=== PATIENT | female | born 2000 | race Caucasian/White ===

== ENCOUNTER 2020-10-16 09:32 | Emergency (ER) | payer MEDICAID, SELFPAY ==
[2020-10-16 09:33] VITALS: BP 117/92; PULSE 100; RESP 16; TEMP 36.3; O2SAT 100; BMI 18.7
--- NOTE | 2020-10-16 09:39 | ED.VIS.GEN ---
History of Present Illness Chief Complaint: Vag Bld, Preg Informant: Patient Narrative: 20-year-old female G1, P0 @ 5 weeks presents with concern for vaginal spotting. States it began this morning. Mild cramping. States that she had a positive test 2 days ago. Last menstrual period was 1 month ago. Past Medical History - Allergies and Home Meds Allergies/Adverse Reactions: Allergies Penicillins Allergy (Verified 10/16/20 09:35) Hives Prior records reviewed: Yes Past Medical History: - - Hypothyroidism Surgical History: no surgical history Lives: Spouse/ Significant Other Smoking Status: Never smoker Alcohol: None Drugs: None Review of Systems General: Denies: Chills, Fever, Sweats Eyes: Denies: Visual changes - bilaterally, Diplopia ENT: Denies: Rhinorrhea, Sore throat Cardiovascular: Denies: Chest pain, Palpitations Respiratory: Denies: Dyspnea, Cough, Dyspnea on exertion Gastrointestinal: Denies: Abdominal pain, Nausea, Vomiting, Diarrhea, Melena, Hematochezia Genitourinary: Reports: - - vaginal bleeding. Denies: Dysuria, Hematuria, Frequency Musculoskeletal: Denies: Back pain, Extremity Pain Skin: Denies: Rash, Wounds Neurological: Denies: Headache, Weakness, Numbness Physical Exam Vital Signs/Narrative: Vital Signs Temp Pulse Resp BP Pulse Ox 10/16/20 09:33 97.4 F L 100 16 117/92 H 100 Inital Vital Signs reviewed: Yes General: Well nourished, Well developed, No Acute Distress Head: Normocephalic, Atraumatic Eyes: Perrl, EOMI ENT: Moist mucous membranes, No rhinorrhea Neck: Supple, Nontender Cardiovascular: Regular rate, Regular rhythm, No murmurs Respiratory: No distress, CTA bilaterally, Chest nontender Abdomen: Soft, Nontender, Nondistended, Normal bowel sounds Back: Nontender, Normal Inspection Extremities: Nontender, No edema Skin: Normal color, No rash Neurological: Alert, Oriented x3, Cranial nerves II-XII grossly intact, Normal Strength, Normal Sensation Psychological: Normal affect, Normal Mood Diagnostic/Tx/Re-eval Laboratory Data 10/16/20 10/16/20 09:45 09:54 HCG, Quant 143 H Serum , Qual Cancelled Urine Color Yellow Urine Clarity Sl. Cloudy Urine pH 7.0 Ur Specific Roxana 1.010 Urine Protein Negative Urine Glucose (UA) Normal Urine Ketones Negative Urine Occult Blood 250 H Urine Nitrite Negative Urine Bilirubin Negative Urine Urobilinogen Normal Ur Leukocyte Esterase Negative Urine RBC 5-10 SEEN Urine WBC 0 SEEN Ur Squamous Epith Cells 0-5 SEEN Urine Bacteria RARE Urine Mucus 0 SEEN - Medical Decision Making Patient appears well and nontoxic. Benign abdominal exam. Patient has a very minimally elevated hCG. After discussion patient will defer pelvic exam at this time. Was advised that she needs to have her quantitative hCG rechecked within 48 to 72 hours. Will be given SUPPLY CHAIN MANAGER follow-up and she will call to make this appointment today. Asked to return for any worsening abdominal pain or vaginal bleeding. Patient agreeable and discharged home in stable condition. Impression: 1. Vaginal bleeding 2. 1st trimester ED Disposition - Plan for ED Patient: Disposition: Home or Assisted Living Instructions: ED Possible Miscarriage ... Referrals: Care Physician,No Primary [Primary Care Provider] - Yi Keane DO [STAFF PHYSICIAN] - Additional Instructions: Please have HCG re-drawn in 48-72 hours. Call today for appointment with OBGYN. Return for any worsened bleeding or pain.
[2020-10-16 09:55] LABS: Mucous, Urine 0 SEEN /hpf (<or=2+); White Blood Cells 0 SEEN /hpf (0-5)
[2020-10-16 09:57] LABS: Color, Urine Yellow (Yellow); Glucose, Dipstick Normal (Normal); Ketone-Dipstick Negative (Negative); Leukocyte Esterase-Dipstick Negative /ul (Negative); Nitrite-Dipstick Negative (Negative); Occult Blood-Urine 250 /ul (Negative); Protein-Dipstick Negative (Negative); Urine Bilirubin Dipstick Negative (Negative); Urine Clarity Sl. Cloudy (Clear); Urine Urobilinogen Normal (Normal)
[2020-10-16 10:09] LABS: Bacteria RARE /hpf (None Seen); Red Blood Cells-Urine 5-10 SEEN /hpf (0-5); Squamous Epithelial Cells - UA 0-5 SEEN /hpf (5-10)
[2020-10-16 10:32] LABS: hCG Titer Quant., Serum 143 mIU/mL (1-3)
== END 2020-10-16 11:23 | disposition home or self-care (01) ==
PROVIDERS: Emergency Provider Emergency Medicine
DX: O20.9 Hemorrhage in early pregnancy, unspecified (principal); O99.281 Endocrine, nutritional and metabolic diseases complicating pregnancy, first trimester; E03.9 Hypothyroidism, unspecified; Z3A.01 Less than 8 weeks gestation of pregnancy
CPT/HCPCS: 36415; 81001; 84702; 99282

== ENCOUNTER → 2020-10-20 | Outpatient (CLI) | payer MEDICAID, SELFPAY ==
[2020-10-16 09:33] VITALS: BMI 18.7
[2020-10-20 13:17] LABS: hCG Titer Quant., Serum 14 mIU/mL (1-3)
== END | disposition home or self-care (01) ==
LOC: LABSPEC 11:29
PROVIDERS: Visit Provider Obstetrics & Gynecology
DX: O20.0 Threatened abortion (principal); Z3A.00 Weeks of gestation of pregnancy not specified
CPT/HCPCS: 36415; 84702; 86900; 86901

== ENCOUNTER → 2020-12-20 | Outpatient (CLI) | payer MEDICAID, SELFPAY ==
[2020-12-20 16:00] LABS: hCG Titer Quant., Serum 2454 mIU/mL (1-3)
== END | disposition home or self-care (01) ==
LOC: WOBLAB 14:17
PROVIDERS: Visit Provider Obstetrics & Gynecology
DX: N91.2 Amenorrhea, unspecified (principal)
CPT/HCPCS: 36415; 84702

== ENCOUNTER → 2021-01-09 | Outpatient (CLI) | payer MEDICAID, SELFPAY ==
[2021-01-09 11:21] LABS: Absolute Lymphocyte Count 0.98 X10^3/uL (0.83-4.51); Absolute Neutrophil Count 2.8 X10^3/uL (2.0-7.7); Basophil# 0.02 X10^3/uL; Basophil% 0.5 % (0-1); Eosinophil# 0.02 X10^3/uL; Eosinophils% 0.5 % (0-5); Hematocrit 35.7 % (37-47); Hemoglobin 11.4 g/dL (12.0-15.0); Lymphocyte # 0.98 X10^3/ul (4.0); Lymphocyte % 22.7 % (19-41); Mean Corp Hgb Conc 31.9 g/dL (32-36); Mean Corpuscular Hgb 27.3 pg (27.0-32.0); Mean Corpuscular Volume 85.4 fL (81-99); Mean Platelet Vol. 11.1 fl (6.2-12.0); Monocyte# 0.46 X10^3/uL; Monocyte% 10.7 % (0-10); NRBC Flagged by Analyzer 0 % (0-5); Neutrophil # 2.82 X10^3/uL (2.7-7.7); Neutrophil % 65.4 % (47-70); Platelet Count 236 K/mm3 (150-450); RBC Distribution Width CV 13.5 % (11.6-14.6); RBC Distribution Width SD 41.7 fl (35.1-43.9); Red Blood Count 4.18 M/mm3 (4.2-5.4); White Blood Count 4.3 K/mm3 (4.4-11.0)
[2021-01-09 11:48] LABS: T4 Free Direct 0.95 ng/dL (0.76-1.46); Thyroid Stim Hormone (TSH) 2.73 uIU/mL (0.358-3.74)
[2021-01-09 12:20] LABS: HIV - WCH Non-Reactive (Nonreactive); Hepatitis B Surface Antigen Non-Reactive (Nonreactive); Hepatitis C Antibody Non-Reactive (Nonreactive); Rubella IgG Reactive (Nonreactive); Syphilis Antibodies Non-reactive
[2021-01-11 03:06] LABS: Chlamydia By Nucleic Acid AMP Negative (Negative)
[2021-01-11 16:19] LABS: HPV Reflexed? NOT INDICATED
[2021-01-11 16:24] LABS: Gonococcus By Nucleic Acid AMP Negative (Negative)
== END | disposition home or self-care (01) ==
LOC: WOBLAB 10:27
PROVIDERS: Visit Provider Obstetrics & Gynecology
DX: O99.281 Endocrine, nutritional and metabolic diseases complicating pregnancy, first trimester (principal); E03.9 Hypothyroidism, unspecified; Z12.4 Encounter for screening for malignant neoplasm of cervix; Z11.3 Encounter for screening for infections with a predominantly sexual mode of transmission; Z3A.00 Weeks of gestation of pregnancy not specified
CPT/HCPCS: 36415; 84439; 84443; 85025; 86703; 86762; 86780; 86803; 87086; 87088; 87340; 87491; 87591; 88175; G0145

== ENCOUNTER 2021-02-02 12:41 | Observation (INO) | payer MEDICAID, SELFPAY ==
[2021-02-02] VITALS (16 sets, daily range): BP systolic 99–119; BP diastolic 51–76; PULSE 71–121; RESP 15–18; TEMP 36.6–37; O2SAT 92–100; BMI 19.7; BMI 19.9
--- NOTE | 2021-02-02 13:00 | HP.PCM.OB_ITS ---
History and Physical Date of Admission: 02/02/21 Chief complaint: Vaginal bleeding History of present illness: 20-year-old G2, P0 with active miscarriage measuring 5 weeks. Seen in office with large amount of vaginal bleeding. Passed out in office, retained consciousness in office. Squad was called. Patient denies headache, visual c hanges, chest pain, shortness of breath, nausea vomiting. Does have pelvic cramping and vaginal bleeding. Obstetric history: G1: SAB G2: Current SAB Past medical history: Hypothyroid Medications: vitamin, Synthroid Past surgical history: Dental Allergies: Penicillin (childhood) Social history: Denies history of smoking, alcohol, drug use Family history: Denies history DVT or PE Review of systems: Besides the above pertinent positives a full review of systems performed found to be negative Physical exam: Vital signs: (In office) blood pressure 94/68 pulse 68 General: Pale, weak HEENT: Normocephalic atraumatic no cervical lymphadenopathy Cardiac/respiratory: Nonlabored breathing no use of accessory muscles Abdomen: Soft nontender nondistended Pelvic exam: (In office) with cervix dilated 2 to 3 cm large clot at cervical os along with large amount of vaginal bleeding. Uterus nontender Extremities: No peripheral edema normal peripheral pulses Psych: Normal affect normal demeanor nonpressured speech. Neuro: AOA x3 Assessment and plan: 20-year-old G2, P0 with incomplete active bleeding hemorrhage. Found in office to have passed out, did not hit the floor was called by nursing. Patient quickly recovered. AOA x3 but too weak to stand. Vitals were as above. 911 was called, patient was picked up by squad. With active bleeding and incomplete miscarriage will plan for emergency suction D&C. Patient understands the risk of the procedure include but are not limited to visceral or vascular injury, prolonged hospitalization, blood loss need for transfusion, reoperation. Patient awake and oriented understands risks of consent, states understanding, wishes to proceed, all questions were answered. For IV access. We will get stat CBC. Doxycycline 200 mg IV. Discussed with anesthesia team who agrees.
--- NOTE | 2021-02-02 13:13 | ED.VIS.FEGU ---
HPI HPI - Female History of Present Illness Chief Complaint: Vag Bld, Preg Informant: patient Narrative Narrative: Patient is presenting from her [employer]OMOTIVE RE[employer]ISHER office for concern of hemorrhagic shock from an incomplete AB. Patient started having vaginal bleeding last night. She started to lightheaded this morning. She has had multiple episodes of passing out. She was seen in the office and was noted to have a dilated cervix as well as a large amount of vaginal bleeding. She was felt to be too unstable to go directly to the OR so she was sent to the emergency room to be evaluated and then go to the OR. Patient denies any other complaints at this time. Prior similar symptoms: No PFSH PFSH Medical History (Updated 02/02/21 @ 13:[address] Divine Rosenberg, DO) Hypothyroid no medical history Home Medications levothyroxine 25 mcg PO DAILY 02/02/21 [History Last Taken Unknown] Allergy/AdvReac Type Severity Reaction Status Date / Time Penicillins Allergy Hives Verified 02/02/21 13:01 no significant family history no surgical history Social History Smoking Status: Never smoker ROS ROS ED Constitutional Constitutional ED: Reports other Details: Lightheaded, syncope ; Denies chills, fever(s) or malaise Eyes Eyes: Denies blurry vision or loss of vision ENT ENT ED: Denies rhinorrhea or sore throat Cardiovascular Cardiovascular: Denies chest pain or dizziness Respiratory/Chest Respiratory/Chest: Denies cough or dyspnea Gastrointestinal Gastrointestinal: Reports abdominal pain; Denies nausea or vomiting Genitourinary Genitourinary ED: Reports other Details: Vaginal bleeding ; Denies dysuria or hematuria Musculoskeletal Musculoskeletal: Denies arthralgias or myalgias Integumentary Denies rash or wounds Neurologic Neurologic: Denies focal weakness, headache(s) or weakness Psychiatric Psychiatric: Denies anxiety or behavioral changes EXAM Physical Exam Const Vital Signs: 02/02/21 12:52 02/02/21 13:09 Temperature 98.6 F 98.6 F Temperature Source Oral Oral Pulse Rate 107 H 110 H Respiratory Rate 16 17 Blood Pressure 113/72 119/76 Blood Pressure Mean 85 90 Blood Pressure Source Monitor Blood Pressure Position Supine Blood Pressure Location Right Arm Pulse Ox 96 94 Oxygen Delivery Method Room Air Room Air Positive well nourished and well developed General Appearance ED: well developed and pallor HEENT Reports normocephalic atraumatic Nose: no nasal discharge General Ear: hearing grossly impaired External Ear: external ears normal Mouth ED: Yes moist mucous membranes abnormal Mouth: moist mucous membranes abnormal Eyes PERRL and EOMs intact bilaterally Neck full ROM and no meningeal signs Chest Wall inspection of chest normal Resp normal respiratory effort and normal air movement Cardio regular rhythm Rate: tachycardic GI soft to palpation and non-distended Palpation: tender suprapubic; Negative for guarding Extremity normal to inspection and full ROM Neuro oriented x3 and no focal motor deficits Psych mental status grossly normal and thought process normal Skin no rashes or lesions noted and no wounds General Skin Exam: pallor MDM MDM MDM Narrative Medical decision making narrative: Patient evaluated for excessive vaginal bleeding. She is having a spontaneous . She is felt to be too unstable to go directly to the OR so she was sent to the emergency room first. Patient is given IV fluids. While she is tachycardic and lightheaded she has normal blood pressure. She is not in shock. She requires definitive management with D&C in the operating room. Case is discussed with her AUTOMOTIVE REFINISHER, Dr. Keane, who request that we give her 1 unit of packed red blood cells and send her to the OR where he can perform a D&C. Patient is agreeable with this plan of care. Treatment and Re-Evaluation Comments:: 1 L IV fluid bolus, type and cross for 1 unit packed red blood cells, admit to the OR Discharge Plan Dx/Rx/DC Orders Clinical Impression: Acute bleeding, Incomplete Disposition Disposition: [facility] Discharge Date/Time: 02/02/21 13:19
[2021-02-02] MEDS: 0.9% Normal Saline 1,000 ML 1000 ML IV (13:15)
[2021-02-02 13:26] LABS: Absolute Neutrophil Count 12.6 X10^3/uL (2.0-7.7); Basophil# 0.01 X10^3/uL; Basophil% 0.1 % (0-1); Hematocrit 32.1 % (37-47); Hemoglobin 10.9 g/dL (12.0-15.0); Mean Corpuscular Hgb 28.6 pg (27.0-32.0); Mean Corpuscular Volume 84.3 fL (81-99); Mean Platelet Vol. 11.1 fl (6.2-12.0); Monocyte# 0.79 X10^3/uL; Monocyte% 5.6 % (0-10); NRBC Flagged by Analyzer 0 % (0-5); Neutrophil # 12.56 X10^3/uL (2.7-7.7); Neutrophil % 88.9 % (47-70); Platelet Count 258 K/mm3 (150-450); RBC Distribution Width CV 13.2 % (11.6-14.6); RBC Distribution Width SD 40.6 fl (35.1-43.9); Red Blood Count 3.81 M/mm3 (4.2-5.4); White Blood Count 14.1 K/mm3 (4.4-11.0)
--- NOTE | 2021-02-02 14:00 | POC_PTH ---
PATIENT: KEENAN GOODE LOC: [facility] U#:[id number] AGE/SX: ROOM: MS317 RE02/02/[address]: Dr. Sree Keane MD : 2000 BED: 1 DIS: 02/03/2021 SPEC #: [id number] RECD: 02/05/21 09:58 STATUS: ADELE REQ #: [id number] JOY: 02/02/21 14:[address]: Sree Keane DEPT: SURGICAL PATHOLOGY RECD BY: Brodie Subramanian ENTERED: 02/05/21 11:15 SP TYPE: PROD CONC OTHR DR: No Primary Care Phys Tissues: Product of conception, NOS Procedures: Surgery Specimen Level IV HEADER OPERATION: Suction dilation and curettage PRE-OP DIAGNOSIS: Incomplete , active bleeding hemorrhage TISSUE SUBMITTED: Products of conception MICROSCOPIC DIAGNOSIS Products of conception: Decidua, gestational endometrium and immature chorionic villi (products of conception). SJ:jackelyn 02/06/2021 MICROSCOPIC DESCRIPTION Slides are reviewed. GROSS DESCRIPTION Received in fixative is one container labeled with the patient's name and designated products of conception. The specimen consists of multiple pieces of pink hemorrhagic soft tissue that in aggregate measure 6 x 5 x 2 cm. tissue is not identified. Tanbark Laborer tissue is submitted in two cassettes. / NELL:jackelyn 02/05/21 TC:5 CPT: 83573
--- NOTE | 2021-02-02 14:21 | OP.PCM_ITS ---
Report of Operation Date of Procedure: 02/02/21 Pre-Operative Diagnosis: Incomplete , hemorrhage Post-Operative Diagnosis: Incomplete , hemorrhage Surgery/Procedure Performed:: Suction dilation curettage Description of Surgical Findings:: Surgeon: Sree Keane MD Anesthesia: General EBL: 50 cc Urine output: 0 cc IV fluids: 2000 cc Complications: None Specimen: Products of conception Findings: Cervix dilated 2 cm with active clots and bleeding. 10 mm curved curette used. Moderate amount of tissue obtained. 20 units of Pitocin IV given. Postoperative bedside ultrasound with thin endometrial stripe. Prolonged monitoring performed, found to be hemostatic. Ordered 1 unit of packed red blood cells to be transfused but did not arrived to the OR, will give postoperatively. Consent: 20-year-old G2, P0 with vaginal bleeding incomplete seen in office with large amount of vaginal bleeding found to have symptomatic anemia. 911 called. Patient in need of emergency suction dilation curettage. Overall patient AOA x3 and discussed risk benefits alternatives of procedure include but are not limited to visceral or vascular injury, prolonged hospitalization, blood loss and need for transfusion, reoperation. Patient state understanding wish to proceed. Discussed need for transfusion based on symptomatic anemia and current hemorrhage, risk benefits alternatives given including but are not limited to infection, transfusion reactions. Patient state understanding wish to proceed. All questions were answered and consents surgically and transfusion were signed. Procedure: Patient was brought back to the OR where general anesthesia found to be adequate. 200 mg of IV doxycycline were given for infection prophylaxis. 20 units of Pitocin IV were given. Patient was prepared and draped in dorsol ithotomy position with yellowfin stirrups. Weighted speculum placed in the posterior aspect of the vagina and the above findings were noted. Using a 10 mm curved curette suction curettage was performed. Good hemostasis was noted after prolonged monitoring in the OR. All counts correct x2. Patient tolerated the procedure well was brought to recovery in stable condition. printed circuit boards plasma etcher: None
--- NOTE | 2021-02-02 17:37 | PCM.PN.OB ---
Subjective Subjective: Patient comfortable in bed. Now asymptomatic. Able to ambulate to bathroom without issues. Patient denies vaginal bleeding. Tolerating clear liquids. Pain well controlled. Denies headache, visual changes, chest pain, shortness of breath, nausea vomiting. Objective Data Objective Data Vital Signs: Vital Signs Temp Pulse Resp BP Pulse Ox 97.8 F 115 H 18 99/64 100 02/02/21 16:37 02/02/21 16:37 02/02/21 16:37 02/02/21 16:37 02/02/21 16:37 Oxygen Flow Rate (L/min) 2 Oxygen Delivery Method Room Air Weight: 139 lb Body Mass Index (BMI) 19.9 Intake & Output: Intake and Output for Last 24 Hours 01/31/21 02/01/21 02/02/21 23:59 23:59 23:59 Intake Total 1000 / 1000 Balance 1000 / 1000 Lab / Micro Data Result Diagrams: 02/02/21 12:43 Labs: Laboratory Results - last 24 hr 02/02/21 02/02/21 12:43 12:43 WBC 14.1 H RBC 3.81 L Hgb 10.9 L Hct 32.1 L MCV 84.3 MCH 28.6 MCHC 34.0 RDW Std Deviation 40.6 RDW Coeff of Mikal 13.2 Plt Count 258 MPV 11.1 Immature Gran % (Auto) 0.400 Neut % (Auto) 88.9 H Lymph % (Auto) 5.0 L [place] % (Auto) 5.6 Eos % (Auto) 0.0 Baso % (Auto) 0.1 Absolute Neuts (auto) 12.6 H Absolute Lymphs (auto) 0.70 L Nucleated RBC % 0 Crossmatch See Detail Physical Exam Const alert, oriented x3 and no apparent distress HEENT normocephalic Head and Scalp: atraumatic Resp normal respiratory effort, no retractions and no use of accessory muscles Skin no rashes or lesions noted Neuro no focal motor deficits Psych mental status grossly normal, affect normal, speech normal and activity/motor behavior normal Assessment & Plan (1) Spontaneous : PLAN: Patient now status post suction D&C. Resting comfortably in bed. Now able to ambulate, tolerating p.o. clear diet. Voiding and ambulating. Currently being transfused 1 unit of packed red blood cells. Vital signs previously improved but now with tachycardia borderline hypotension but patient asymptomatic. Will continue evaluate symptoms. Pending vital signs and symptoms after transfusion will consider repeat CBC prior to a.m. repeat CBC
[2021-02-02] MEDS: 0.9% Saline Lock 10 ML Syringe IV (18:41)
[2021-02-02] MEDS: Ketorolac 30 MG/ML Syringe IV (18:41)
[2021-02-02] MEDS: Acetaminophen 500 MG Tablet 1000 MG PO (18:42)
[2021-02-02] MEDS: Docusate Sodium 100 MG Capsule PO (20:40)
[2021-02-03 00:04] VITALS: BP 95/43; PULSE 76; RESP 16; TEMP 37.2; O2SAT 100
[2021-02-03] MEDS: Ketorolac 30 MG/ML Syringe IV ×2 (00:08→05:09)
[2021-02-03] MEDS: 0.9% Saline Lock 10 ML Syringe IV ×2 (00:08→05:09)
[2021-02-03] MEDS: Acetaminophen 500 MG Tablet 1000 MG PO ×2 (00:08→05:09)
[2021-02-03 01:08] VITALS: BP 100/50; PULSE 98; RESP 16; TEMP 37.2; O2SAT 98
[2021-02-03 01:29] LABS: Hemoglobin 9.2 g/dL (12.0-15.0)
[2021-02-03 05:06] VITALS: BP 98/56; PULSE 90; RESP 16; TEMP 36.9; O2SAT 100
[2021-02-03] MEDS: Levothyroxine 25 MCG TABLET PO (05:08)
[2021-02-03 08:17] LABS: Hematocrit 25.2 % (37-47); Hemoglobin 8.5 g/dL (12.0-15.0); Mean Corp Hgb Conc 33.7 g/dL (32-36); Mean Corpuscular Hgb 28.4 pg (27.0-32.0); Mean Corpuscular Volume 84.3 fL (81-99); Mean Platelet Vol. 10.6 fl (6.2-12.0); Platelet Count 205 K/mm3 (150-450); RBC Distribution Width CV 13.6 % (11.6-14.6); RBC Distribution Width SD 42.1 fl (35.1-43.9); Red Blood Count 2.99 M/mm3 (4.2-5.4); White Blood Count 7.3 K/mm3 (4.4-11.0)
[2021-02-03 09:00] VITALS: BP 100/61; PULSE 90; RESP 14; TEMP 36.9; O2SAT 100
--- NOTE | 2021-02-03 10:41 | PCM.PN.OB ---
Subjective Subjective: No overnight complaints. Pain well controlled. Minimal to no bleeding. Patient asymptomatic, ambulating with ease. Denies dizziness, weakness, chest pain, shortness of breath, nausea vomiting. Voiding spontaneously. Tolerating regular diet Objective Data Objective Data Vital Signs: Vital Signs Temp Pulse Resp BP Pulse Ox 98.4 F 90 16 98/56 L 100 02/03/21 05:06 02/03/21 05:06 02/03/21 05:06 02/03/21 05:06 02/03/21 05:06 Oxygen Flow Rate (L/min) 2 Oxygen Delivery Method Room Air Weight: 139 lb Body Mass Index (BMI) 19.9 Intake & Output: Intake and Output for Last 24 Hours 02/01/21 02/02/21 02/03/21 23:59 23:59 23:59 Intake Total 1720 / 3155 1585 / 1585 Output Total 1400 / 3075 1675 / 1675 Balance 320 / 80 -90 / -90 Lab / Micro Data Result Diagrams: 02/03/21 08:10 Labs: Laboratory Results - last 24 hr 02/02/21 02/02/21 02/03/21 12:43 12:43 01:25 WBC 14.1 H Corrected WBC RBC 3.81 L Hgb 10.9 L 9.2 L Hct 32.1 L 27.0 L MCV 84.3 MCH 28.6 MCHC 34.0 RDW Std Deviation 40.6 RDW Coeff of Mikal 13.2 Plt Count 258 MPV 11.1 Immature Gran % (Auto) 0.400 Neut % (Auto) 88.9 H Lymph % (Auto) 5.0 L [place] % (Auto) 5.6 Eos % (Auto) 0.0 Baso % (Auto) 0.1 Absolute Neuts (auto) 12.6 H Absolute Lymphs (auto) 0.70 L Nucleated RBC % 0 Diff Path Review Crossmatch See Detail 02/03/21 02/03/21 05:55 08:10 WBC Cancelled 7.3 Corrected WBC Cancelled RBC Cancelled 2.99 L Hgb Cancelled 8.5 L Hct Cancelled 25.2 L MCV Cancelled 84.3 MCH Cancelled 28.4 MCHC Cancelled 33.7 RDW Std Deviation Cancelled 42.1 RDW Coeff of Mikal Cancelled 13.6 Plt Count Cancelled 205 MPV Cancelled 10.6 Immature Gran % (Auto) Neut % (Auto) Lymph % (Auto) [place] % (Auto) Eos % (Auto) Baso % (Auto) Absolute Neuts (auto) Absolute Lymphs (auto) Nucleated RBC % Diff Path Review Cancelled Crossmatch Physical Exam Const alert, oriented x3, no apparent distress, healthy appearing and well nourished HEENT normocephalic and moist oral mucous membranes Head and Scalp: atraumatic Neck full ROM Resp normal respiratory effort, no retractions and no use of accessory muscles Cardio regular rate Extremity normal to inspection, full ROM and no clubbing, cyanosis or edema Skin no rashes or lesions noted Psych mental status grossly normal, affect normal, speech normal and activity/motor behavior normal Assessment & Plan (1) Spontaneous : PLAN: Postoperative day one status post suction dilation curettage. Status post 1 unit of packed red blood cells. Vital signs stable, patient asymptomatic. Vaginal spotting, no heavy bleeding. Able to ambulate with ease. Overall reassuring. Pain well controlled. Okay to discharge home today with precautions. To follow-up in office on .
--- NOTE | 2021-02-03 10:45 | PCM.DC ---
Discharge Instructions Diet Discharge Diet: No restrictions Activity Discharge Activity: Return to Normal Activity, No Restrictions, May Drive and May Shower May resume sexual activity in: 4-6 weeks Weight Bearing Status: Weight bearing as tolerated Follow Up Care Please Follow Up With: Sree Keane MD When: Scheduled for appointment on , 02/08/2021 Test Results: Test results from this visit will be discussed in further detail at your follow-up appointment, if applicable. Discharge Plan Admission Attending Provider: Sree Keane Primary Care Provider: Care Physician,Carrol Primary Discharge Orders/Prescriptions Prescriptions: No Action levothyroxine 25 mcg tablet 25 mcg PO DAILY RF: 0 Referrals / Follow Up: Care Physician,No Primary [Primary Care Provider] - Disposition Discharge Orders: Discharge Patient (Routine); Ordered 02/03/21 Ordered By: Dr. Sree Keane
[2021-02-03 10:55] VITALS: O2SAT 93
== END 2021-02-03 11:30 | disposition home or self-care (01) ==
LOC: ED 13:14 → SDC 13:27 → AC 13:28 → MS3 02-03 11:07 → SDC 02-05 08:13 → MS3 02-05 08:13
PROVIDERS: Admitting Provider Obstetrics & Gynecology; Emergency Provider Emergency Medicine; Visit Provider Obstetrics & Gynecology
PROC: (CPT 59812; principal; 2021-02-02 13:45)
DX: O03.4 Incomplete spontaneous abortion without complication (principal); E03.9 Hypothyroidism, unspecified; Z79.899 Other long term (current) drug therapy
CPT/HCPCS: 59812; 36415; 36430; 85014; 85018; 85025; 85027; 86850; 86900; 86901; 86920; 86922; 88305; 96374; 96376; 99218; 99251; 99285; J7030; J7040; P9016; A4216; G0378; G0463; J2405

== ENCOUNTER → 2021-02-02 14:16 | Outpatient (CLI) | payer MEDICAID, SELFPAY ==
--- NOTE | 2021-02-02 | POC_PTH ---
PATIENT: KEENAN GOODE LOC: [facility] U#:[id number] AGE/SX: 25/F ROOM: RE02/02/[address]: Dr. Sree Keane MD : 2000 BED: DIS: SPEC #: [id number] RECD: 02/02/21 14:25 STATUS: ADELE REQ #: [id number] JOY: 02/02/21 00:[address]: Sree Keane DEPT: SURGICAL PATHOLOGY RECD BY: Aaron Jane ENTERED: 02/05/21 07:59 SP TYPE: PROD CONC OTHR DR: No Primary Care Phys Tissues: Product of conception, NOS Procedures: Surgery Specimen Level IV HEADER OPERATION: Removal of products of conception PRE-OP DIAGNOSIS: Spontaneous TISSUE SUBMITTED: Products of conception MICROSCOPIC DIAGNOSIS Products of conception: Decidua and gestational endometrium. See comment. NELL:jackelyn 02/06/2021 COMMENT Chorionic villi are not identified in the sections examined. Please also correlate with additional specimen ([id number]) products of conception with diagnosis of ?products of conception.? MICROSCOPIC DESCRIPTION Slides are reviewed. GROSS DESCRIPTION Received in fixative is one container labeled with the patient's name and designated products of conception. The specimen consists of multiple pieces of hemorrhagic soft tissue that in aggregate measure 8 x 4 x 1 cm. tissue is not identified. Waistline Joiner Overlock tissue is submitted in two cassettes. / SJ:rg 02/05/21 TC:5 CPT: 52742
[2021-02-02 13:09] VITALS: BMI 19.7
== END ==
PROVIDERS: Visit Provider Obstetrics & Gynecology
DX: O03.9 Complete or unspecified spontaneous abortion without complication (principal)
CPT/HCPCS: 88305

== ENCOUNTER → 2021-02-08 15:08 | Outpatient (CLI) | payer MEDICAID, SELFPAY ==
[2021-02-02 16:31] VITALS: BMI 19.9
[2021-02-08 15:44] LABS: Hematocrit 29.9 % (37-47); Mean Corp Hgb Conc 33.4 g/dL (32-36); Mean Corpuscular Hgb 28.7 pg (27.0-32.0); Mean Corpuscular Volume 85.9 fL (81-99); Mean Platelet Vol. 10.7 fl (6.2-12.0); Platelet Count 302 K/mm3 (150-450); RBC Distribution Width CV 13.1 % (11.6-14.6); RBC Distribution Width SD 40.9 fl (35.1-43.9); Red Blood Count 3.48 M/mm3 (4.2-5.4); White Blood Count 4.9 K/mm3 (4.4-11.0)
[2021-02-08 16:20] LABS: hCG Titer Quant., Serum 570 mIU/mL (1-3)
== END ==
PROVIDERS: Visit Provider Obstetrics & Gynecology
DX: O03.9 Complete or unspecified spontaneous abortion without complication (principal)
CPT/HCPCS: 36415; 84702; 85027

== ENCOUNTER → 2021-02-16 11:35 | Outpatient (CLI) | payer MEDICAID, SELFPAY ==
[2021-02-02 16:31] VITALS: BMI 19.9
[2021-02-16 12:50] LABS: hCG Titer Quant., Serum 73 mIU/mL (1-3)
== END ==
PROVIDERS: Visit Provider Obstetrics & Gynecology
DX: O03.9 Complete or unspecified spontaneous abortion without complication (principal)
CPT/HCPCS: 36415; 84702

== ENCOUNTER → 2021-02-22 | Outpatient (CLI) | payer MEDICAID, SELFPAY ==
[2021-02-02 16:31] VITALS: BMI 19.9
[2021-02-22 15:14] LABS: hCG Titer Quant., Serum 24 mIU/mL (1-3)
== END | disposition home or self-care (01) ==
LOC: LABSPEC 11:23
PROVIDERS: Visit Provider Obstetrics & Gynecology
DX: O03.9 Complete or unspecified spontaneous abortion without complication (principal)
CPT/HCPCS: 36415; 84702

== ENCOUNTER → 2021-06-18 | Outpatient (CLI) | payer MEDICAID, SELFPAY | END | disposition home or self-care (01) | LOC: LABSPEC 15:06 | PROVIDERS: Visit Provider Physician Assistant Surgical | DX: U07.1 COVID-19 (principal) | CPT/HCPCS: 87635; U0005; U0003 ==

== ENCOUNTER → 2022-01-23 | Outpatient (CLI) | payer MEDICAID, SELFPAY ==
[2022-01-23 15:58] LABS: Partial Thromboplast Time 31.3 Seconds (24.1-36.2); Prothrombin Time (Protime)PT. 13.1 SECONDS (11.7-14.9)
[2022-01-23 16:07] LABS: Thyroid Stim Hormone (TSH) 0.73 uIU/mL (0.358-3.74)
== END | disposition home or self-care (01) ==
PROVIDERS: Visit Provider Obstetrics & Gynecology
DX: N96 Recurrent pregnancy loss (principal)
CPT/HCPCS: 36415; 84443; 85610; 85730

== ENCOUNTER → 2022-03-04 | Outpatient (CLI) | payer MEDICAID, SELFPAY ==
[2022-03-04 09:58] LABS: Absolute Neutrophil Count 2.8 X10^3/uL (2.0-7.7); Basophil# 0.01 X10^3/uL; Basophil% 0.2 % (0-1); Eosinophil# 0.03 X10^3/uL; Eosinophils% 0.7 % (0-5); Hematocrit 31.7 % (37-47); Hemoglobin 10.4 g/dL (12.0-15.0); Lymphocyte % 20.9 % (19-41); Mean Corp Hgb Conc 32.8 g/dL (32-36); Mean Corpuscular Hgb 26.4 pg (27.0-32.0); Mean Corpuscular Volume 80.5 fL (81-99); Mean Platelet Vol. 11.3 fl (6.2-12.0); Monocyte# 0.53 X10^3/uL; Monocyte% 12.3 % (0-10); NRBC Flagged by Analyzer 0 % (0-5); Neutrophil # 2.82 X10^3/uL (2.7-7.7); Neutrophil % 65.7 % (47-70); Platelet Count 242 K/mm3 (150-450); RBC Distribution Width CV 14.7 % (11.6-14.6); RBC Distribution Width SD 42.7 fl (35.1-43.9); Red Blood Count 3.94 M/mm3 (4.2-5.4); White Blood Count 4.3 K/mm3 (4.4-11.0)
[2022-03-04 10:48] LABS: HIV - WCH Non-Reactive (Nonreactive); Hepatitis B Surface Antigen Non-Reactive (Nonreactive); Hepatitis C Antibody Non-Reactive (Nonreactive); Rubella IgG Reactive (Nonreactive); Syphilis Antibodies Non-reactive
[2022-03-05 22:07] LABS: Chlamydia By Nucleic Acid AMP Negative (Negative)
[2022-03-05 22:10] LABS: Gonococcus By Nucleic Acid AMP Negative (Negative)
== END | disposition home or self-care (01) ==
LOC: WOBLAB 09:10
PROVIDERS: Visit Provider Obstetrics & Gynecology
DX: Z34.81 Encounter for supervision of other normal pregnancy, first trimester (principal)
CPT/HCPCS: 36415; 85025; 86703; 86762; 86780; 86803; 87086; 87088; 87340; 87491; 87591

== ENCOUNTER → 2022-07-04 | Outpatient (CLI) | payer MEDICAID, SELFPAY ==
[2022-07-04 12:25] LABS: Absolute Lymphocyte Count 0.98 X10^3/uL (0.83-4.51); Absolute Neutrophil Count 5.5 X10^3/uL (2.0-7.7); Basophil# 0.03 X10^3/uL; Basophil% 0.4 % (0-1); Eosinophil# 0.07 X10^3/uL; Hematocrit 29.9 % (37-47); Lymphocyte # 0.98 X10^3/ul (0.83-4.51); Lymphocyte % 13.6 % (19-41); Mean Corp Hgb Conc 33.4 g/dL (32-36); Mean Corpuscular Volume 89.8 fL (81-99); Mean Platelet Vol. 11.3 fl (6.2-12.0); Monocyte# 0.56 X10^3/uL; Monocyte% 7.8 % (0-10); NRBC Flagged by Analyzer 0 % (0-5); Neutrophil % 76.4 % (47-70); Platelet Count 265 K/mm3 (150-450); RBC Distribution Width CV 12.7 % (11.6-14.6); RBC Distribution Width SD 41.7 fl (35.1-43.9); Red Blood Count 3.33 M/mm3 (4.2-5.4); White Blood Count 7.2 K/mm3 (4.4-11.0)
[2022-07-04 13:27] LABS: Glucose Challenge Gest 1H 50g 73 mg/dL (70-140)
== END | disposition home or self-care (01) ==
PROVIDERS: Visit Provider Obstetrics & Gynecology
DX: Z34.82 Encounter for supervision of other normal pregnancy, second trimester (principal)
CPT/HCPCS: 36415; 82950; 85025

== ENCOUNTER → 2022-09-18 | Outpatient (CLI) | payer MEDICAID, SELFPAY | END | disposition home or self-care (01) | PROVIDERS: Visit Provider Obstetrics & Gynecology | DX: Z36.85 Encounter for antenatal screening for Streptococcus B (principal) | CPT/HCPCS: 87081 ==

== ENCOUNTER 2022-10-23 19:17 | Inpatient (IN) | payer MEDICAID, SELFPAY ==
[2022-10-23 19:32] VITALS: BP 137/83; PULSE 97; TEMP 36.7; O2SAT 99
[2022-10-23 19:51] VITALS: PULSE 227; O2SAT 80
[2022-10-23 20:00] VITALS: BMI 21.7
[2022-10-23 20:39] LABS: Absolute Lymphocyte Count 1.07 X10^3/uL (0.83-4.51); Absolute Neutrophil Count 7.4 X10^3/uL (2.0-7.7); Basophil# 0.03 X10^3/uL; Basophil% 0.3 % (0-1); Eosinophil# 0.01 X10^3/uL; Eosinophils% 0.1 % (0-5); Hematocrit 27.9 % (37-47); Hemoglobin 9.2 g/dL (12.0-15.0); Lymphocyte # 1.07 X10^3/ul (0.83-4.51); Lymphocyte % 11.6 % (19-41); Mean Corpuscular Hgb 26.9 pg (27.0-32.0); Mean Corpuscular Volume 81.6 fL (81-99); Mean Platelet Vol. 12.3 fl (6.2-12.0); Monocyte# 0.69 X10^3/uL; Monocyte% 7.5 % (0-10); NRBC Flagged by Analyzer 0 % (0-5); Neutrophil # 7.35 X10^3/uL (2.7-7.7); Platelet Count 221 K/mm3 (150-450); RBC Distribution Width CV 13.8 % (11.6-14.6); RBC Distribution Width SD 40.6 fl (35.1-43.9); Red Blood Count 3.42 M/mm3 (4.2-5.4); White Blood Count 9.2 K/mm3 (4.4-11.0)
[2022-10-23] MEDS: miSOPROStol 25 MCG TABLET VAGINAL (21:08)
[2022-10-23 21:12] VITALS: BP 131/84; PULSE 88; PULSE 96; TEMP 36.2; O2SAT 100
[2022-10-24] VITALS (74 sets, daily range): BP systolic 108–150; BP diastolic 53–81; PULSE 57–155; RESP 16; TEMP 36.4–37.4; O2SAT 84–100
[2022-10-24] MEDS: miSOPROStol 25 MCG TABLET VAGINAL (01:49)
[2022-10-24] MEDS: LACTATED RINGERS 500 ML 999 ML IV ×2 (03:23→05:28)
[2022-10-24] MEDS: Ondansetron 4 MG/2 ML Vial IV (03:45)
[2022-10-24] MEDS: Lactated Ringers 1,000 ML 200 ML IV ×2 (04:12→08:00)
[2022-10-24] MEDS: fentaNYL-bupivacaine (epidural) 100 ML BAG EPIDURAL ×2 (06:09→10:18)
--- NOTE | 2022-10-24 08:26 | HP.PCM.OB_ITS ---
History and Physical Date of Admission: 10/23/22 Chief complaint: Induction of labor at term History present illness: 22-year-old G3, P0 at 41 weeks and 5 days arrived last night for induction of labor at term. Today patient denies headache, visual changes, chest pain, shortness of breath, nausea vomit, right upper quadrant pain. Patient states good movement. Obstetric history: G1: SAB G2: SAB G3: Current Past medical history: Hypothyroid Medications: vitamin, Synthroid Past surgical history: D&C Allergies: Penicillin Social history: Denies smoking, alcohol use, drug use Family history: Denies history DVT or PE Review of systems: Besides above pertinent positives a full review of systems was performed and found to be negative Physical exam: Vitals: Blood pressure 117/67 pulse 57 SPO2 98% on room air General: Normal-appearing no acute distress HEENT: Normocephalic/atraumatic no cervical of adenopathy Cardiac/respiratory: No use of accessory muscles, nonlabored breathing Abdomen: Soft, nontender, gravid Pelvic exam: Cervical exam 6-7/70/-2. During cervical exam SROM for blood- tinged fluid Extremities: No peripheral edema normal peripheral pulses Psych: Normal affect normal demeanor nonpressured speech Labs: White blood cell count 9.2 hemoglobin 9.2 hematocrit 27.9% platelets 221. Blood type a positive antibody negative Assessment plan: 22-year-old G3, P0 at 40 weeks and 5 days arrived for induction of labor overnight. Called by nursing for orders, check to be 1 cm by nursing given orders for Cytotec 25 mcg vaginally every 4 hours. Patient began dulce on her own overnight, Cytotec dose held. Patient seen today cervical exam as above, SROM during cervical exam. We will continue expectant management and use Pitocin if needed for augmentation of labor. GBS negative.
[2022-10-24] MEDS: Oxytocin 15 Units/NS 250ml 15 UNITS/250 ML IV.SOLN 83 UNITS IV (13:03)
--- NOTE | 2022-10-24 13:34 | EX.PCM.OBRPT ---
Vaginal Delivery Findings Description of Procedure: Normal spontaneous vaginal delivery of a viable male , vertex TRAVIS. Head and shoulders delivered with ease. Cord clamped and cut. Placenta delivered via cord traction and fundal massage. IV oxytocin initiated on to facilitate uterine contractions. Second-degree midline perineal laceration noted and repaired in typical fashion. Bilateral labial lacerations noted and repaired in typical fashion. EBL 350 cc Apgars 8/9
[2022-10-24] MEDS: 0.9% Saline Lock 10 ML Syringe IV (14:47)
[2022-10-24] MEDS: Acetaminophen 500 MG Tablet 1000 MG PO ×2 (16:11→21:50)
--- NOTE | 2022-10-24 17:15 | NURSING ---
This RN taking over care for this patient at this time. Report given to this RN by Javi Francisco.
[2022-10-24] MEDS: Ibuprofen 600 MG Tablet PO (17:58)
[2022-10-24] MEDS: Benzocaine/Lanolin/Aloe Vera 1 SPRAY EACH TOPICAL (17:58)
[2022-10-25 00:15] VITALS: BP 113/72; PULSE 107; RESP 16; TEMP 36.7; O2SAT 99
[2022-10-25] MEDS: Ibuprofen 600 MG Tablet PO ×2 (00:19→10:52)
[2022-10-25 04:24] VITALS: BP 116/79; PULSE 95; RESP 18; TEMP 36.4; O2SAT 98
[2022-10-25] MEDS: Acetaminophen 500 MG Tablet 1000 MG PO (04:28)
[2022-10-25] MEDS: Levothyroxine 25 MCG TABLET PO (05:58)
--- NOTE | 2022-10-25 07:42 | DS.PCM_ITS ---
Discharge Summary Date of Admission: 10/23/22 Date of Discharge: 10/25/22 Summary: Patient arrived on 10/23/2022 in labor. Subsequently delivered vaginally on 10/24/2022. Routine recovery and discharged home on 10/25/2022 Meaningful Use Info Meaningful Use Diagnoses (Choose all that apply): None applicable Discharge Plan Admission Admit Date/Time: 10/23/22 19:17 Primary Reason for Your Visit: Labor Attending Provider: Sree Keane Primary Care Provider: Care Physician,Carrol Primary Instructions Additional Instructions / Restrictions: Regular diet. Weightbearing as tolerated. Okay to shower. No intercourse for 4 to 6 weeks. Call if fevers, chills, chest pain, shortness of breath. Follow- up 4 to 6 weeks Discharge Orders/Prescriptions Prescriptions: No Action levothyroxine 25 mcg tablet 25 mcg PO DAILY Label Comments: TAKE 1 TABLET BY MOUTH ONCE DAILY ON AN EMPTY STOMACH FOR THYROID See Rx Instructions .ROUTE .COMPLEX Rx Instructions: taken daily 200mg Referrals / Follow Up: Care Physician,Carrol Primary [Primary Care Provider] - Disposition Disposition (needs filled in before D/C Order can be placed): Home, Self Care
--- NOTE | 2022-10-25 07:43 | PCM.PN.OB ---
Subjective Subjective No overnight complaints Objective Data Objective Data Vital Signs: Vital Signs Temp Pulse Resp BP Pulse Ox O2 Del Method 97.5 F L 95 18 116/79 98 Room Air 10/25/22 04:24 10/25/22 04:24 10/25/22 04:24 10/25/22 04:24 10/25/22 04:24 10/25/22 04:24 Oxygen Delivery Method Room Air Weight: 151 lb 6 oz Body Mass Index (BMI) 21.7 Intake & Output: Intake and Output for Last 24 Hours 10/23/22 10/24/22 10/25/22 23:59 23:59 23:59 Intake Total 2906.63 / 2906.63 Output Total 1750 / 1750 600 / 600 Balance 1156.63 / 1156.63 -600 / -600 Lab / Micro Data Result Diagrams: 10/23/22 19:40 Physical Exam Const alert, oriented x3, no apparent distress, average body habitus, healthy appearing and well nourished HEENT normocephalic and moist oral mucous membranes Eyes PERRL Neck full ROM Resp normal respiratory effort, no retractions and no use of accessory muscles GI GI Narrative: Soft, nontender, uterus firm and below umbilicus Extremity normal to inspection, full ROM and no clubbing, cyanosis or edema Neuro moves all extremities and no focal motor deficits Psych mental status grossly normal, affect normal, speech normal and activity/motor behavior normal Assessment & Plan (1) Vaginal delivery: PLAN: day 1. Breast-feeding. Pain well controlled. Okay to discharge home if okay with sales order specialist
[2022-10-25 08:15] VITALS: BP 117/75; PULSE 76; RESP 16; TEMP 36.6
--- NOTE | 2022-10-25 11:49 | CASEMGMT ---
Note Referral Source: ?Ricarda, outbound telemarketing representative [facility] Referral Reason: History of depression SW met with MOB in the room. MOB gave consent to speak to her in the presence of the FOB. MOB appeared to appropriately be bonding with the nb with commenting on how the nb looked like her as a child, and showed this writer producer her pictures. Per Rylie ALAN she has no concerns regarding MOB and FOB. Mom: Gardenia Blackman PNC: [place] Control: MOB reports no plans for control Baby: Michael Blackman : 10/24/22 Apgars: 8/9 Weight: 7# 15 ounces Transaction Advisory Services Manager: ?Strong MOB reports is going ?alright? MOB' other children: None Housing: MOB, FOB, and nb reside in a home. Home is adequate. Transportation: MOB reports that she has access to vehicle and is able to drive when medically cleared. Supplies: MOB reports she has carseat, bassinet, crib, clothes and diapers for the nb. Support: MOB said that her support will be her ?dad, sister and both of our families?. MOB said that her father resides on the same road that they live on. MOB said that both her and the FOB?s family are local. Education Level: ?MOB completed high school and had some college. No learning issues. ? Employment: Not currently employed outside the home. ? Agency Involvement: MOB reports [employer] insurance and [employer]. MOB declined [facility] referral. MOB reports no Legal, counseling or CSB issues. FOB: Andre Blackman Time Together: 3 years Involved at : Yes Employment: FOAnkit is employed at [employer] in [place]. He will be taking 1 week off work. Other Children: None FOB MH/ AOD/DV : FOB denied Maternal MH History: MOB reports history of ?minor? anxiety. MOB said that she is not on any medication nor has been on any medication for anxiety. MOB said that she has never been to counseling. MOB said that the did not make her anxiety worse. MOB said that her anxiety is that things bother her and she ?worries?. MOB denied any current or past SI/HI. MOB? reports no past psych hospitalization. MOB and FOB were educated on Shaken Baby Syndrome, PPD and Safe Sleeping. MOB reports no alcohol or drug use during . MOB drank alcohol prior to . MOB is not a smoker. MOB completed PHQ-2 with score of 0. Sw provided the MOB with handout resources on PPD/PPA which included information on phone and on line support and local resources. Plan: Home at discharge Xi AGUILAR
[2022-10-25 12:00] VITALS: BP 114/61; PULSE 92; RESP 16; TEMP 36.9
== END 2022-10-25 15:30 | disposition home or self-care (01) | DRG 560 ==
PROVIDERS: Admitting Provider Obstetrics & Gynecology; Visit Provider Obstetrics & Gynecology
DX: O48.0 Post-term pregnancy (principal); Z37.0 Single live birth; E03.9 Hypothyroidism, unspecified; O70.1 Second degree perineal laceration during delivery; O99.284 Endocrine, nutritional and metabolic diseases complicating childbirth; Z79.890 Hormone replacement therapy; Z3A.41 41 weeks gestation of pregnancy
CPT/HCPCS: 59025; 59050; 85025; 86850; 86900; 86901; 99221; J7120; A4216; G0378; J2405

== ENCOUNTER → 2023-02-07 | Outpatient (CLI) | payer BC, MEDICAID, SELFPAY ==
[2023-02-07 11:08] LABS: Absolute Lymphocyte Count 1.07 X10^3/uL (0.83-4.51); Absolute Neutrophil Count 7.4 X10^3/uL (2.0-7.7); Basophil# 0.03 X10^3/uL; Basophil% 0.3 % (0-1); Eosinophil# 0.06 X10^3/uL; Eosinophils% 0.6 % (0-5); Hematocrit 32.6 % (37-47); Hemoglobin 9.7 g/dL (12.0-15.0); Lymphocyte # 1.07 X10^3/ul (0.83-4.51); Lymphocyte % 11.5 % (19-41); Mean Corp Hgb Conc 29.8 g/dL (32-36); Mean Corpuscular Hgb 23.9 pg (27.0-32.0); Mean Corpuscular Volume 80.3 fL (81-99); Mean Platelet Vol. 11.1 fl (6.2-12.0); Monocyte# 0.66 X10^3/uL; Monocyte% 7.1 % (0-10); NRBC Flagged by Analyzer 0 % (0-5); Neutrophil # 7.42 X10^3/uL (2.7-7.7); Neutrophil % 80.1 % (47-70); Platelet Count 362 K/mm3 (150-450); RBC Distribution Width CV 13.6 % (11.6-14.6); RBC Distribution Width SD 39.2 fl (35.1-43.9); Red Blood Count 4.06 M/mm3 (4.2-5.4); White Blood Count 9.3 K/mm3 (4.4-11.0)
[2023-02-07 11:55] LABS: ALB/GLOB Ratio 0.9 RATIO (0.9-2.4); AST(SGOT) 19 U/L (15-37); Alanine Aminotransfer ALT/SGPT 29 U/L (13-56); Alkaline Phosphatase 98 U/L (45-117); Anion Gap 6 (5-15); BUN 11 mg/dL (7-18); BUN/Creat Ratio 14.9 RATIO (10-20); Chloride 107 mmol/L (98-107); Creatinine, Serum 0.74 mg/dL (0.55-1.02); EST Glomerular Filtration Rate 103 mL/min (>60); Est Glom Filt Rate - Afr Amer 125 mL/min (>60); Globulin 4.3 g/dL (2.2-4.2); Glucose 97 mg/dL (74-106); Potassium 4.3 mmol/L (3.5-5.1); Prolactin 62.4 ng/mL; Protein, Total 8.3 g/dL (6.4-8.2); Sodium Level 139 mmol/L (136-145); T4 Free Direct 3.07 ng/dL (0.76-1.46); Thyroid Stim Hormone (TSH) < 0.01 uIU/mL (0.358-3.74)
== END | disposition home or self-care (01) ==
LOC: WOBLAB 10:34
PROVIDERS: Visit Provider Obstetrics & Gynecology
DX: F41.1 Generalized anxiety disorder (principal)
CPT/HCPCS: 36415; 80053; 84146; 84439; 84443; 85025

== ENCOUNTER → 2023-03-07 | Outpatient (CLI) | payer BC, MEDICAID, SELFPAY ==
[2023-03-07 17:31] LABS: Ferritin 4 ng/mL (8-252); Free T3 1.5 pg/mL (2.18-3.98); Iron 28 ug/dL (50-170); Iron Binding Capacity,Total 479 ug/dL (250-450); T4 Free Direct 0.33 ng/dL (0.76-1.46)
[2023-03-10 16:08] LABS: Thyroid Peroxidase AB 195 IU/mL (0-34); Thyroid Stim Immunoglob <0.10 IU/L (0.00-0.55)
== END | disposition home or self-care (01) ==
LOC: LAB 16:41
PROVIDERS: PCP Physician Assistant; Referring Provider Internal Medicine Endocrinology, Diabetes & Metabolism; Visit Provider Internal Medicine Endocrinology, Diabetes & Metabolism
DX: D64.9 Anemia, unspecified (principal); E05.90 Thyrotoxicosis, unspecified without thyrotoxic crisis or storm
CPT/HCPCS: 36415; 82728; 83540; 83550; 84439; 84443; 84445; 84481; 86376

== ENCOUNTER → 2024-06-24 | Outpatient (CLI) | payer MEDICAID, SELFPAY ==
[2024-06-24 17:08] LABS: T4 Free Direct 1.54 ng/dL (0.76-1.46); Thyroid Stim Hormone (TSH) < 0.005 uIU/mL (0.358-3.740)
== END | disposition home or self-care (01) ==
LOC: LAB 15:49
PROVIDERS: PCP Physician Assistant; Referring Provider Internal Medicine Endocrinology, Diabetes & Metabolism; Visit Provider Internal Medicine Endocrinology, Diabetes & Metabolism
DX: E03.8 Other specified hypothyroidism (principal); E06.3 Autoimmune thyroiditis
CPT/HCPCS: 36415; 84439; 84443

== ENCOUNTER → 2024-08-31 | Outpatient (CLI) | payer MEDICAID, SELFPAY ==
[2024-08-31 15:18] LABS: Free T3 2.6 pg/mL (2.18-3.98); T4 Free Direct 0.67 ng/dL (0.76-1.46)
== END | disposition home or self-care (01) ==
LOC: LAB 14:01
PROVIDERS: PCP Physician Assistant; Referring Provider Internal Medicine Endocrinology, Diabetes & Metabolism; Visit Provider Internal Medicine Endocrinology, Diabetes & Metabolism
DX: E03.8 Other specified hypothyroidism (principal); E06.3 Autoimmune thyroiditis
CPT/HCPCS: 36415; 84439; 84443; 84481

== ENCOUNTER → 2025-08-30 | Outpatient (CLI) | payer MEDICAID, SELFPAY ==
[2025-08-30 15:58] LABS: Free T3 3.2 pg/mL (2.18-3.98)
== END | disposition home or self-care (01) ==
LOC: LAB 14:33
PROVIDERS: PCP Physician Assistant; Referring Provider Nurse Practitioner Family; Visit Provider Nurse Practitioner Family
DX: E03.8 Other specified hypothyroidism (principal); E06.3 Autoimmune thyroiditis
CPT/HCPCS: 36415; 84439; 84443; 84481